=== PATIENT | male | born 1985 | race Two or more races ===

== ENCOUNTER 2019-05-27 07:03 | Emergency (ER) | payer BC ==
[~2019-05-27] VITALS: Ht 175.3 cm; Wt 73.0 kg
--- NOTE | 2019-05-27 07:03 | NUR ---
PT BIB [facility], pt reports having sudden onset of BLOUNT w/ reported right sided weakness at [address] Pt reports pulling over and calling EMS. Pt arrived to ED complaining of severe headache and light sensitivity. Pt's PMH: NonHodgkins lymphoma
[2019-05-27] MEDS ORDERED: ONDANSETRON 2MG/ML, 2ML ONE (07:17)
--- NOTE | 2019-05-27 07:30 | NUR ---
Pt's implanted port accessed in CT per MD Fernandez verbal order. Pt reprots he has a power port, port accessed w/o complication, + blood return, flushes w/ ease.
[2019-05-27] MEDS ORDERED: ACETAMINOPHEN 500 MG TABLET PO ONE (08:00)
[2019-05-27] MEDS ORDERED: PLEASE ENTER ALLERGIES MC SCH (08:00)
[2019-05-27] MEDS ORDERED: PLEASE ENTER HEIGHT AND WEIGHT MC SCH (08:00)
--- NOTE | 2019-05-27 08:00 | NUR ---
Returned from CT w/o complication, CCU RN Amanda has been at bedside w/ this RN. Pt dressed easily into gown w/ no evidence of motor deficiet. Pt has requested morphine or valium multiple times for his headache. Law aware. Pt to go to MRI as soon as lead slot technician has arrived to ED.
[2019-05-27 08:06] LABS: BASOPHILS # (AUTO) 0.07 x10^3/uL (0-0.1); BASOPHILS % (AUTO) 1 % (0-1); EOSINOPHILS # (AUTO) 0.18 x10^3/uL (0-0.4); EOSINOPHILS % (AUTO) 4 % (1-7); LYMPHOCYTES # (AUTO) 1.41 x10^3/uL (1-3.4); LYMPHOCYTES % (AUTO) 29 % (22-44); MD NO; MEAN CORPUSCULAR HEMOGLOBIN 29.9 pg (27.5-34.5); MEAN CORPUSCULAR HGB CONC 33.1 g/dL (33.2-36.2); MEAN CORPUSCULAR VOLUME 90.4 fL (81-97); MEAN PLATELET VOLUME 7.1 fL (7.4-10.4); MONOCYTES # (AUTO) 0.41 x10^3/uL (0.2-0.8); MONOCYTES % (AUTO) 8 % (2-9); NEUTROPHILS # (AUTO) 2.83 x10^3/uL (1.8-6.8); NEUTROPHILS % (AUTO) 58 % (42-75); PLATELET COUNT 264 x10^3/uL (130-400); RED BLOOD COUNT 4.17 x10^6/uL (4.38-5.82); RED CELL DISTRIBUTION WIDTH 11.9 % (9.4-14.8)
[2019-05-27 08:19] LABS: INTERNATIONAL NORMALIZED RATIO 1.15 (0.93-1.1)
[2019-05-27] MEDS ORDERED: LORazepam 1MG TABLET PO ONE (08:30)
[2019-05-27] MEDS ORDERED: PROCHLORPERAZINE 5 MG/ML, 2ML IVPush ONE ×2 (08:30→10:00)
--- NOTE | 2019-05-27 08:38 | NUR ---
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 PT HAS ALL PERSONAL BELONGINGS BEDSIDE.
[2019-05-27] MEDS ORDERED: OMNIPAQUE 350 MG/ML, 100ML BOTTLE ONE (08:43)
[2019-05-27] MEDS ORDERED: PROCHLORPERAZINE 5 MG/ML, 2ML ONE ×2 (08:46→09:45)
[2019-05-27] MEDS ORDERED: ACETAMINOPHEN 500 MG TABLET ONE (08:47)
[2019-05-27] MEDS ORDERED: LORazepam 1MG TABLET ONE (08:47)
--- NOTE | 2019-05-27 09:18 | NUR ---
Pt returned from CT in NAD
--- NOTE | 2019-05-27 09:21 | NUR ---
MD Fernandez at bedside discussing POC for pt.
[2019-05-27] MEDS ORDERED: KETOROLAC 30 MG/1 ML IVPush ONE ×2 (09:30→12:00)
[2019-05-27] MEDS ORDERED: MORPHINE SULFATE 4 MG/ML, 1ML IVPush ONE (09:30)
[2019-05-27] MEDS ORDERED: METOCLOPRAMIDE 5 MG/ML, 2ML IVPush ONE (09:30)
--- NOTE | 2019-05-27 09:35 | NUR ---
MD Adamson, neurologist, at bedside to assess pt.
[2019-05-27] MEDS ORDERED: DIPHENHYDRAMINE 50 MG/ML, 1ML ONE (09:45)
[2019-05-27] MEDS ORDERED: METOCLOPRAMIDE 5 MG/ML, 2ML ONE (09:46)
[2019-05-27] MEDS ORDERED: DIPHENHYDRAMINE 50 MG/ML, 1ML IV ONE (10:00)
--- NOTE | 2019-05-27 10:00 | NUR ---
Pt to MRI in NAD
--- NOTE | 2019-05-27 10:42 | NUR ---
Pt returned from MRI in NAD.
--- NOTE | 2019-05-27 11:27 | NUR ---
Law to recheck pt. Pt is sleeping on gurney, easily arrousable, pt reports continued head "discomfort" but cannot rate pain or be most specific about symptoms at this time.
[2019-05-27] MEDS ORDERED: ONDANSETRON 2MG/ML, 2ML IVPush ONE (11:30)
--- NOTE | 2019-05-27 11:38 | NUR ---
ME Law at bedside to recheck pt
[2019-05-27] MEDS ORDERED: MORPHINE SULFATE 4 MG/ML, 1ML ONE (11:48)
[2019-05-27 13:10] VITALS: BP 125/86
== END 2019-05-27 13:13 | disposition home or self-care (01) ==
LOC: EDBD 07:03 → ED 09:19
DX: R51 Headache (principal); C85.90 Non-Hodgkin lymphoma, unspecified, unspecified site
CPT/HCPCS: 36415; 70450; 70496; 70498; 70544; 70551; 85025; 85610; 85730; 93005; 96374; 96375; 99291; J0780; J1200; J2270; J2405; Q9967; 80047